=== PATIENT | male | born 1995 ===

== ENCOUNTER → 2021-10-10 08:15 | Outpatient (CLI) | payer BC, SELFPAY ==
--- NOTE | ~2021-10-10 | CT_ITS ---
EXAMINATION: CTA abdomen DATE: 10/10/2021 08:49 INDICATION: Abdominal pain and pulsatile mass TECHNIQUE: Computed tomographic angiography (CTA) of the abdomen was performed with 100 mL Omnipaque- 350 intravenous contrast. Volume-rendered 3D-reconstructions of the aorta and large arteries were con structed by the technologist on a separate workstation. Automated exposure control and iterative sb nstruction technique were employed. The dose-length product was 390.15 mGy-cm. COMPARISON: None FINDINGS: Lung bases are clear. Heart size is normal. No pericardial or pleural effusion. Liver, gallbladder, s pleen, pancreas, bilateral adrenal glands and kidneys are normal. Visualized portion of the bowels ar e normal. Normal caliber abdominal aorta with no aneurysm, dissection or evident atherosclerosis. And there is also no evident significant atherosclerotic disease within patent arteries arising from the abdominal aorta or in the arteries of the visualized pelvis. No pathologically enlarged abdominal ly mphadenopathy. Minimal lumbar levocurvature. Bones are otherwise unremarkable. IMPRESSION: 1. Normal abdominal aorta. No aneurysm or other acute intra-abdominal process. Reviewed, dictated and finalized at location A.
--- NOTE | ~2021-10-10 | US_ITS ---
US scrotum doppler INDICATION: Right testicular pain. TECHNIQUE: Testicular sonogram utilizing grayscale and color Doppler FINDINGS: The testes are normal in size and appearance. No focal lesions are seen. The right testes measures 3.1 x 3 x 2.3 cm centimeters, and the left testis measures 4.6 x 2.1 x 2.5 cm cm. There is n ormal vascular flow to both testes. There is a 2 mm left epididymal cyst. Otherwise, the epididymis is unremarkable. No hydrocele. There is a right varicocele. IMPRESSION: 1. Right varicocele. Reviewed, dictated and finalized at location B. IMPRESSION: 1. Right varicocele.
== END ==
PROVIDERS: PCP Emergency Medicine; Visit Provider Emergency Medicine
DX: R10.9 Unspecified abdominal pain (principal); N50.819 Testicular pain, unspecified; I86.1 Scrotal varices
CPT/HCPCS: 74175; 76870; 93976; Q9967